=== PATIENT | male | born 1995 | race Two or more races ===

== ENCOUNTER 2025-01-22 09:17 | Emergency (ER) | payer OTHER | END 2025-01-22 09:50 | disposition home or self-care (01) | LOC: JD.ED 09:17 | DX: S80.11XA Contusion of right lower leg, initial encounter (principal); X58.XXXA Exposure to other specified factors, initial encounter; Y93.89 Activity, other specified | CPT/HCPCS: 73590-26-LT; 73590-LT; 99283 ==